=== PATIENT | female | born 1945 | race Two or more races ===

== ENCOUNTER → 2017-09-04 | Outpatient (CLI) | payer MEDICARE ==
[2016-02-04 16:19] VITALS: BP 125/73
[~2017-09-04] MED LIST: AMLO5TAB2 PO; ASPI-630 PO; ATOR40TA PO; CHOL20002 PO; CRAN500C6 PO; CYAN1TAB15 SL; FLAX100017 PO; FOLI1TAB16 PO; METO-239 PO; METO25TA2 PO; OMEG-33 PO; OMEP10CA PO; PANT40TA5 PO; TRAM50TA PO; UBID200C7 PO; VALS1TAB18 PO; WARF4TAB7 PO
--- NOTE | 2017-09-04 15:24 | RAD ---
DATE: 09/04/2017. EXAM: DIGITAL SCREEN BILAT W/CAD. HISTORY: Routine mammographic screening. COMPARISON: 06/12/2016. This study was interpreted with the benefit of Computerized Aided Detection (CAD). FINDINGS: The breast parenchyma shows scattered fibroglandular densities. Breast parenchyma level B.. There are no suspicious masses, microcalcifications or architectural distortion. Scattered calcifications are benign. BI-RADS CATEGORY: 2 BENIGN FINDING(S). RECOMMENDED FOLLOW-UP: 12M 12 MONTH FOLLOW-UP. PQRS compliance statement: Patient information was entered into a reminder system with a target due date 09/04/2018 for the next mammogram. Mammography is a sensitive method for finding small breast cancers, but it does not detect them all and is not a substitute for careful clinical examination. A negative mammogram does not negate a clinically suspicious finding and should not result in delay in biopsying a clinically suspicious abnormality. "Our facility is accredited by the [employer] Mammography Program."
== END | disposition home or self-care (01) ==
LOC: MAMMO 14:27
PROVIDERS: ATTEND Internal Medicine
DX: Z12.31 Encounter for screening mammogram for malignant neoplasm of breast (principal)
CPT/HCPCS: G0202; 77067

== ENCOUNTER 2018-03-12 05:55 | Inpatient (IN) | payer MEDICARE ==
[2018-03-12] MEDS: ASPIRIN CHEWABLE 81 MG TABLET. PO (06:35)
[2018-03-12 07:07] LABS: INR 1.1 (0.8-1.1); PARTIAL THROMBOPLASTIN TIME 28 SEC (24-38); PROTHROMBIN TIME PATIENT 13.2 SEC (11.7-14.0)
[2018-03-12 07:08] LABS: ADD MAN DIFF? NO
[2018-03-12 07:09] LABS: ANION GAP 7 (6-14); BLOOD UREA NITROGEN 17 mg/dL (7-20); CALCIUM 8.8 mg/dL (8.5-10.1); CARBON DIOXIDE 29 mmol/L (21-32); CHLORIDE 107 mmol/L (98-107); CREATININE 0.9 mg/dL (0.6-1.0); GFR 61.2; GLUCOSE 92 mg/dL (70-99); POTASSIUM 3.8 mmol/L (3.5-5.1); SODIUM 143 mmol/L (136-145)
[2018-03-12 07:10] LABS: BASO % 1 % (0-3); EOS # 0.3 x10^3/uL (0.0-0.7); EOS % 5 % (0-3); HEMATOCRIT 40.9 % (36.0-47.0); HEMOGLOBIN 13.8 g/dL (12.0-15.5); LYMPH # 1.9 x10^3/uL (1.0-4.8); LYMPH % 32 % (24-48); MEAN CORPUSCULAR HEMOGLOBIN 29 pg (25-35); MEAN CORPUSCULAR HGB CONC 34 g/dL (31-37); MEAN CORPUSCULAR VOLUME 86 fL (79-100); MONO # 0.5 x10^3/uL (0.0-1.1); MONO % 8 % (0-9); NEUT # 3.2 x10^3uL (1.8-7.7); NEUT % 54 % (31-73); PLATELET COUNT 248 x10^3/uL (140-400); RED BLOOD COUNT 4.77 x10^6/uL (3.50-5.40); RED CELL DISTRIBUTION WIDTH 14.1 % (11.5-14.5)
[2018-03-12 07:11] LABS: D-DIMER 0.48 ug/mlFEU (0.00-0.50)
[2018-03-12 07:15] LABS: ALBUMIN 3.4 g/dL (3.4-5.0); ALK PHOS 75 U/L (46-116); ALT (SGPT) 24 U/L (14-59); AST (SGOT) 18 U/L (15-37); DIRECT BILIRUBIN 0.1 mg/dL (0.0-0.2); TOTAL BILIRUBIN 0.5 mg/dL (0.2-1.0)
[2018-03-12 07:21] LABS: TROPONINI < 0.017 ng/mL (0.000-0.055)
[2018-03-12 07:29] LABS: LIPASE 99 U/L (73-393)
[2018-03-12] MEDS ORDERED: NITROGLYCERIN SUBLINGUAL 0.4 MG BOTTLE OF 25. SL (07:30)
[2018-03-12] MEDS ORDERED: ONDANSETRON PF 4 MG/2 ML VIAL. IV (07:30)
[2018-03-12 07:34] LABS: NT-PRO BNP 19 pg/mL (0-124)
[2018-03-12 11:28] LABS: TROPONINI < 0.017 ng/mL (0.000-0.055)
[2018-03-12 13:49] LABS: TROPONINI < 0.017 ng/mL (0.000-0.055)
[2018-03-12] MEDS: REGADENOSON 0.4 MG/5 ML DISP.SYRIN. IV (14:45)
[2018-03-13 05:13] LABS: ADD MAN DIFF? NO
[2018-03-13 05:17] LABS: BASO % 1 % (0-3); EOS # 0.3 x10^3/uL (0.0-0.7); EOS % 5 % (0-3); HEMATOCRIT 43.1 % (36.0-47.0); HEMOGLOBIN 14.1 g/dL (12.0-15.5); LYMPH # 1.8 x10^3/uL (1.0-4.8); LYMPH % 30 % (24-48); MEAN CORPUSCULAR HEMOGLOBIN 29 pg (25-35); MEAN CORPUSCULAR HGB CONC 33 g/dL (31-37); MEAN CORPUSCULAR VOLUME 87 fL (79-100); MONO # 0.5 x10^3/uL (0.0-1.1); MONO % 8 % (0-9); NEUT # 3.3 x10^3uL (1.8-7.7); NEUT % 56 % (31-73); PLATELET COUNT 274 x10^3/uL (140-400); RED BLOOD COUNT 4.95 x10^6/uL (3.50-5.40); RED CELL DISTRIBUTION WIDTH 14.1 % (11.5-14.5); WHITE BLOOD COUNT 5.8 x10^3/uL (4.0-11.0)
[2018-03-13] MEDS ORDERED: traMADol 50 MG TABLET PO (09:00)
[2018-03-13] MEDS ORDERED: ACETAMINOPHEN 500 MG TABLET PO (09:00)
[2018-03-13] MEDS ORDERED: ONDANSETRON PF 4 MG/2 ML VIAL. IV (09:00)
[2018-03-13] MEDS ORDERED: METOPROLOL SUCC 24HR ER 25 MG TAB.ER.24H. PO (09:30)
[2018-03-13] MEDS ORDERED: amLODIPine BESYLATE 5 MG TABLET PO (09:30)
[2018-03-13] MEDS ORDERED: PANTOPRAZOLE 40 MG TABLET.DR. PO (09:30)
[2018-03-13] MEDS ORDERED: hydroCHLOROthiazide 12.5 MG CAPSULE PO (09:30)
[2018-03-13] MEDS ORDERED: ATORVASTATIN CALCIUM 40 MG TABLET. PO (21:00)
== END 2018-03-13 09:12 | disposition home or self-care (01) | DRG 313 ==
LOC: ER 05:55 → 5 NORTH 07:28
DX: R07.89 Other chest pain (principal); E78.5 Hyperlipidemia, unspecified; G56.00 Carpal tunnel syndrome, unspecified upper limb; I10 Essential (primary) hypertension; Z96.653 Presence of artificial knee joint, bilateral; K21.9 Gastro-esophageal reflux disease without esophagitis; Z87.442 Personal history of urinary calculi; Z90.710 Acquired absence of both cervix and uterus; Z82.49 Family history of ischemic heart disease and other diseases of the circulatory system; Z90.49 Acquired absence of other specified parts of digestive tract; Z88.6 Allergy status to analgesic agent
CPT/HCPCS: 36415; 71045; 78452; 80048; 80076; 83690; 83880; 84484; 85025; 85379; 85610; 85730; 93005; 93017; 93306; 93971; 96374; 96375; 96376; 99285; 99285-25; A9500; J2785

== ENCOUNTER → 2019-04-01 | Outpatient (CLI) | payer MEDICARE ==
[2018-03-13 03:03] VITALS: BP 145/76
[~2019-04-01] MED LIST changes: +AMLO5TAB10 PO; -AMLO5TAB2 PO; +WARF4TAB64 PO; -WARF4TAB7 PO
--- NOTE | 2019-04-01 17:33 | KCIC ---
3 view study of the left elbow Clinical indications: Left elbow pain posteriorly. Patient fell this past winter. FINDINGS: No joint effusion is seen. No acute fracture or dislocation or lytic process is evident. Alignment is normal. Minimal degenerative spurring of the coronoid process is seen. No soft tissue swelling of the olecranon bursa is seen. IMPRESSION: No acute osseous abnormality. Electronically signed by: Arun Palmer MD (04/01/2019 5:31 PM) [facility]
--- NOTE | 2019-04-01 17:39 | KCIC ---
3 VIEW STUDY OF THE LEFT WRIST CLINICAL INDICATION: Left wrist pain for years. Repetitive use of hands at work. FINDINGS: No acute fracture or dislocation or lytic process is seen. There is old appearing depression of the medial aspect of the articular surface of the distal left radial epiphysis. This may be related to old repetitive trauma or old fracture This results in proximal subluxation of the lunate bone. There is degenerative osteoarthritis of the radial lunate joint space. There is degenerative osteoarthritis of the distal radial ulnar joint compartment. There is narrowing of the ulnar triquetrum space which may impinge the triangular fibrocartilage complex as a result. There are degenerative cystic changes of the triquetrum bone. Mild primary degenerative osteoarthritis and spurring of the first carpal metacarpal joint is seen. IMPRESSION: Degenerative osteoarthritis of the left wrist. See discussion above. 3 VIEW STUDY OF THE RIGHT WRIST Clinical indications: Right wrist pain for years. Repetitive use of hands at work. FINDINGS: No acute fracture or dislocation or lytic process evident. There is mild depression of the articular surface of the medial aspect of the distal right radial epiphysis. This could be due to old repetitive trauma or old fracture. This results in mild proximal subluxation of the lunate bone. This is not as prominent as the left wrist. There is severe joint space narrowing with osteoarthritis and subchondral cyst formation of the radial lunate joint compartment. There is mild degenerative spurring and osteoarthritis of the first carpal metacarpal joint. IMPRESSION: Degenerative osteoarthritis of the right wrist. See discussion above. Electronically signed by: Arun Palmer MD (04/01/2019 5:37 PM) [facility]
== END | disposition home or self-care (01) ==
LOC: KCIC 14:51
PROVIDERS: ATTEND Family Medicine
DX: M19.032 Primary osteoarthritis, left wrist (principal); M19.031 Primary osteoarthritis, right wrist; M77.8 Other enthesopathies, not elsewhere classified
CPT/HCPCS: 73080; 73110

== ENCOUNTER → 2021-10-04 | Outpatient (CLI) | payer MEDICARE ==
[2019-05-13 20:45] VITALS: BP 183/94
[~2021-10-04] MED LIST changes: +AMLO-186 PO; -AMLO5TAB10 PO; +ORPH100T PO; -PANT40TA5 PO; +PANT40TA77 PO; +PRED20TA PO; -VALS1TAB18 PO; +VALS1TAB19 PO
--- NOTE | 2021-10-05 09:27 | CARD ---
MR#: [id number] Date of Study: 10/04/2021 Ordering Physician: LUIS ENRIQUE HARDY, Referring Physician: LUIS ENRIQUE HARDY Tech: Alessandra Garcia [facility] APPROVED REPORT EXAM: Two-dimensional and M-mode echocardiogram with Doppler and color Doppler. Other Information Quality : AverageLimitedTechnically LimitedHR: 62bpm Rhythm : NSR INDICATION Chest Pain RISK FACTORS Hypertension 2D DIMENSIONS RVDd3.3 (2.9-3.5cm)Left Atrium(2D)3.4 (1.6-4.0cm) IVSd1.0 (0.7-1.1cm)Aortic Root(2D)3.1 (2.0-3.7cm) LVDd4.3 (3.9-5.9cm)LVOT Diameter2.0 (1.8-2.4cm) PWd1.1 (0.7-1.1cm)LVDs2.3 (2.5-4.0cm) FS (%) 46.3 %SV64.3 ml Aortic Valve AoV Peak Flaco.157.6cm/sAoV VTI34.6cm AO Peak GR.9.9mmHgLVOT Peak Flaco.96.4cm/s AO Mean GR.4mmHgAVA (VMAX)1.96cm2 Mitral Valve MV E Xlzvcsfi80.3cm/sMV DECEL [id number] MV A Rgisjedy73.8cm/sE/A Ratio1.0 Pulmonary Valve PV Peak Lgkfqqzi40.2cm/s Tricuspid Valve TR P. Qrvfsuxd891dk/sTR Peak Gr.17mmHg LEFT VENTRICLE The left ventricle is normal size. There is normal left ventricular wall thickness. The left ventricu lar systolic function is normal and the ejection fraction is within normal range. LV ejection fracti on of 55 to 60%. There is normal LV segmental wall motion. The left ventricular diastolic function a nd filling is normal for age. RIGHT VENTRICLE The right ventricle is normal size. There is normal right ventricular wall thickness. The right ventr icular systolic function is normal. ATRIA The left atrium size is normal. The right atrium size is normal. The interatrial septum is intact wit h no evidence for an atrial septal defect or patent foramen ovale as noted on 2-D or Doppler imaging. AORTIC VALVE The aortic valve is normal in structure and function. Doppler and Color Flow revealed no significant aortic regurgitation. There is no significant aortic valvular stenosis. MITRAL VALVE The mitral valve is normal in structure and function. There is no evidence of mitral valve prolapse. There is no mitral valve stenosis. Doppler and Color-flow revealed trace to mild mitral regurgitation . TRICUSPID VALVE The tricuspid valve is normal in structure and function. Doppler and Color Flow revealed trace tricus pid regurgitation. Estimated PAP 20 mmHg. There is no tricuspid valve stenosis. PULMONIC VALVE The pulmonary valve is normal in structure and function. Doppler and Color Flow revealed no pulmonic valvular regurgitation. GREAT VESSELS The aortic root is normal in size. The ascending aorta is mildly dilated. The IVC is normal in size a nd collapses >50% with inspiration. PERICARDIAL EFFUSION There is no evidence of significant pericardial effusion. Critical Notification Critical Value: No <Conclusion> The left ventricle is normal size. The left ventricular systolic function is normal and the ejection fraction is within normal range. LV ejection fraction of 55 to 60%. There is normal LV segmental wall motion. Doppler and Color Flow revealed no significant aortic regurgitation. There is no significant aortic valvular stenosis. Doppler and Color-flow revealed trace to mild mitral regurgitation. Doppler and Color Flow revealed trace tricuspid regurgitation. Estimated PAP 20 mmHg. The ascending aorta is mildly dilated. Signed by : Chuck Balbuena MD Electronically Approved : 10/05/2021 09:27:28
== END ==
LOC: ECHO 07:43
PROVIDERS: ATTEND Internal Medicine Cardiovascular Disease
DX: I34.0 Nonrheumatic mitral (valve) insufficiency (principal)
CPT/HCPCS: 93306

== ENCOUNTER → 2021-10-24 | Outpatient (CLI) | payer MEDICARE ==
[2019-05-13 20:45] VITALS: BP 183/94
--- NOTE | 2021-10-25 11:00 | RAD ---
MR#: [id number] Date of Study: 10/24/2021 Ordering Physician: LUIS ENRIQUE HARDY, Referring Physician: BRENDA RIVERA Tech: RT Deanna Vaca) (N) APPROVED REPORT Test Type: Exercise Stress Nurse/Tech: Otto Mckeon RN Test Indications: chest pain Cardiac History: HTN Medications: See Electronic Medical Record Medical History: See Electronic Medical Record Resting ECG: SR Resting Heart Rate: 51 bpm Resting Blood Pressure: 129/70mmHg Pretest Chest Pain: None Nurse/Tech Notes Lungs CTA, S1S2 Consent: The procedure was explained to the patient in lay terms. Informed consent was witnessed. Mehrdad eout was entered into [employer]. History and Stress Test performed by RT Lio (R) (N) Stress Symptoms Dyspnea POST EXERCISE Reason for Termination: Reached target heart rate Target HR: Yes % of Maximum Predicted HR: 121 bpm Exercise duration: 6:00 min:sec, 3 Stage Max Blood Pressure: 140/79mmHg Blood Pressure response to exercise: Normal blood pressure response during stress. Heart Rate response to exercise: normal response Chest Pain: No. Arrhythmia: No. ST Change: No. INTERPRETATION Stress EKG Conclusion: Baseline EKG showed sinus rhythm. No ischemic changes at peak stress. No arr hythmias. Imaging Protocol IMAGE PROTOCOL: Rest Tc-99m/stress Tc-99m 1 day Rest: Stress: Viability: Radiopharm.Tc99m XqzahtrbfOq15o Sestamibi Dose10.3mCi 31mCi Duration 15min. 10min. Img Date 10/24/2021 10/24/2021 Inj-Img [id number]. 60min. Rest Admin Site:IV - Right AntecubitalAdministrator:BERTA Ramírez, ARRT (R)(N) Stress Admin Site: IV - Right AntecubitalAdministrator: BERTA Ramírez, ARRT (R)(N) STRESS DATA End Diast. Vol.58.0mlAv. Heart Rate68.0bpm End Syst. Vol.7.0mlCO Index BSA0.0L/min Myocardial Mits894.0gEject. Xkjngegd63.0% Stress Rates Pk. Fill Rate2.98EDV/secLVtime Pk. Fill 130.76msec Pk. Empty Rate3.75ESV/secLVtime Pk. Zfyhq689.02msec 1/3 Pk. Fill1.93EDV/sec Stress Scores Regional WT0.00Summed WT0.00 Regional WM0.00Summed WM1.00 Study quality was good. Left Ventricular size was Normal at Rest and Stress. Lung uptake was . Left Ventricular ejection fraction is 88%. The rest and stress images show normal perfusion, normal contraction and thickening. LV Perf. Quant 17 Seg. SSS5.00 17 Seg. SRS10.00 17 Seg. SDS0.00 Stress Defect Extent (% LAD)0.00Rest Defect Extent (% LAD)6.30Rev. Defect Extent (% LAD)0.00 Stress Defect Extent (% LCX) 31.30Rest Defect Extent (% LCX)37.50Rev. Defect Extent (% LCX)0.00 Stress Defect Extent (% RCA)0.00Rest Defect Extent (% RCA)1.10Rev. Defect Extent (% RCA)0.00 Stress Defect Extent (% ASHLEIGH)9.60Rest Defect Extent (% ASHLEIGH)16.30Rev. Defect Extent (% ASHLEIGH)0.00 Conclusion 1. Treadmill exercise cardioisotope stress test did not show any evidence of ischemia or infarct. 2. Normal left ventricular systolic function with ejection fraction calculated at 88%. 3. Low risk for cardiac events. Signed by : Luis Enrique Hardy, Electronically Approved : 10/25/2021 11:00:22
== END ==
LOC: NM 08:21
PROVIDERS: ATTEND Internal Medicine Cardiovascular Disease
DX: R07.9 Chest pain, unspecified (principal)
CPT/HCPCS: 78452; 93017; A9500

== ENCOUNTER → 2021-11-15 | Outpatient (CLI) | payer MEDICARE ==
[2019-05-13 20:45] VITALS: BP 183/94
--- NOTE | 2021-11-15 15:50 | RAD ---
MR#: [id number] Date of Study: 11/15/2021 Ordering Physician: LUIS ENRIQUE PAEZ, Referring Physician: LUIS ENRIQUE PAEZ, Tech: Jeremy Rivera MBA, RDMS, RVT, RDCS, RTR APPROVED REPORT Patient Location : OUT-PATIENT Indications VENOUS INSUFFICIENCY Greater Saphenous Veins (GSV) Significant venous relux noted in the RIGHT GSV at the following levels : Superficial Femoral Junctio n, Proximal Thigh, Mid Thigh, Distal Thigh, Proximal Calf, Mid Calf, Distal Calf Findings Grayscale images of superficial veins and saphenofemoral junctions bilaterally were grossly unremarka ble without any evidence of thrombus. Spectral waveform and color duplex analysis showed significant reflux involving the right greater saphenous vein in the proximal, mid and distal segments. This bismark ured 5.9 cm at the saphenofemoral junction and showed a reflux of 2.9 seconds. The right lesser saphe nous vein and left greater and lesser saphenous veins did not show any significant reflux. Critical Notification Critical Value: No <Conclusion> Bilateral lower extremity venous reflux study showed significant reflux involving the right greater s aphenous vein. The right lesser and left greater and lesser saphenous veins were competent. Signed by : Luis Enrique Paez, Electronically Approved : 11/15/2021 15:49:35
== END ==
LOC: US 09:38
PROVIDERS: ATTEND Internal Medicine Cardiovascular Disease
DX: I87.2 Venous insufficiency (chronic) (peripheral) (principal)
CPT/HCPCS: 93970

== ENCOUNTER → 2022-01-09 | Outpatient (CLI) | payer MEDICARE ==
[2019-05-13 20:45] VITALS: BP 183/94
[~2022-01-09] MED LIST changes: +CONTRAST GIVEN. MC PRN; +IOHEXOL 240 MG/ML 50ML VIAL. PO ONE; +IOHEXOL 300 MG/ML 100ML VIAL. IV ONE
[2022-01-09 08:58] LABS: CREATININE 0.8 mg/dL (0.6-1.0); GFR 83.9
--- NOTE | 2022-01-09 14:52 | RAD ---
EXAM: Abdomen and pelvis CT with intravenous contrast. HISTORY: Right lower quadrant pain. TECHNIQUE: Computed tomographic images of the abdomen and pelvis were obtained following the administ ration of intravenous contrast. Multiplanar reformatting was performed. *One or more of the following individualized dose reduction techniques were utilized for this examina tion: 1. Automated exposure control. 2. Adjustment of the mA and/or kV according to patient size. 3. Use of iterative reconstruction technique. COMPARISON: None. FINDINGS: There is lingular and bilateral infrahilar atelectasis or scarring. There is no infiltrate or pleural effusion. There is a tiny hiatal hernia. There is hepatic steatosis. No suspicious hepatic lesion is seen. The gallbladder is absent. There is a tiny proximal duodenal diverticulum. The pancreas, spleen and adrenal glands are unremarkable. There is a 4.4 cm simple cyst within the up per pole of the left kidney. Follow-up is not routinely performed for simple cysts. The bladder is un remarkable. The uterus is absent. No adnexal lesion is seen. There is no convincing appendicitis. There is no bowel obstruction. There is moderate colonic stool. The aorta is normal in caliber. There is no lymphadenopathy. There is degenerative change involving t he lumbar spine, primarily at L4-L5. There is a prominent benign osseous hemangioma within L2. There is no acute or suspicious osseous finding. IMPRESSION: 1. Hepatic steatosis. 2. Tiny hiatal hernia. 3. Simple left renal cyst. 4. Moderate colonic stool. Electronically signed by: Shaista Hui MD (01/09/2022 2:49 PM) [facility]
== END ==
LOC: CT 12:18
PROVIDERS: ATTEND Internal Medicine Gastroenterology
DX: K76.0 Fatty (change of) liver, not elsewhere classified (principal); N28.1 Cyst of kidney, acquired; K56.41 Fecal impaction; K57.10 Diverticulosis of small intestine without perforation or abscess without bleeding; D18.09 Hemangioma of other sites; M47.816 Spondylosis without myelopathy or radiculopathy, lumbar region; Z90.49 Acquired absence of other specified parts of digestive tract; Z90.710 Acquired absence of both cervix and uterus
CPT/HCPCS: 36415; 74177; 82565; 84520; Q9966; Q9967